=== PATIENT | male | born 1970 | race Caucasian/White ===

== ENCOUNTER 2019-01-12 06:14 | Emergency (ER) | payer BC, SELFPAY ==
[2019-01-12 06:18] VITALS: BP 133/87; PULSE 72; RESP 16; TEMP 36.7; O2SAT 99
--- NOTE | 2019-01-12 06:34 | ED.GENADUL_ITS ---
Discharge Plan Disposition Patient Disposition: HOME Discharge Details Chief Complaint: DentalOral Clinical Impression: Dental abscess Primary Care Provider: Shefali Montano ED Provider: Armin Canada Home Meds and New Rx's Prescriptions: New clindamycin HCl 150 mg capsule 450 mg PO TID 7 Days Qty: 60 RF: 0 No Action No Known Home Meds RF: 0 Discharge Instructions Instructions: Dental Abscess (ED) Additional Instructions: Please take full course of antibiotic as prescribed. Please follow-up with your dentist. Call today to confirm appointment. Return to the ER for any worsening or new concerning symptoms. Medical Decision Making 48-year-old male here with dental abscess. Patient was given Tylenol and ibuprofen. Bupivacaine topical anesthetic gel was applied to his right upper gumline. Periapical dental block of the affected tooth was performed using lidocaine. Fluctuant abscess was incised by making small superficial incision. Patient has severe penicillin allergy. Plan to start clindamycin. Patient was instructed to follow-up with his dentist. Usual and customary discharge instructions were provided. HPI General Mode of arrival: ambulatory . Date/Time Provider Initiated Documentation: 01/12/19 06:20 . Limitations to Documentation: no limitations . Information obtained by: patient . HPI Narrative: 48-year-old male presents with chief complaint of dental pain. Patient notes pain in his right upper incisor for the past week. Pain is been worsening. No trauma. Patient now notes associated swelling along his gumline. No discharge. Patient also notes associated swelling of his face today. No associated fever. Related Data Home Medications Medication Instructions Recorded Confirmed Unknown [No Known Home Meds] 01/12/19 01/12/19 clindamycin HCl 450 mg PO TID 7 Days #60 cap 01/12/19 Previous Rx's Medication Instructions Recorded clindamycin HCl 450 mg PO TID 7 Days #60 cap 01/12/19 Allergies Allergy/AdvReac Type Severity Reaction Status Date / Time Penicillins Allergy Severe Hives Unverified 01/12/19 06:22 General Stated Complaint: DentalOral HARJIT: 4 Review of Systems Constitutional Constitutional: Denies fever(s) ENT Ears, Nose, Mouth, and Throat: Reports as per HPI [facility] Surgical History Vasectomy Family History Mother No problems noted. Father No problems noted. Sister History of Chiari malformation Sister No problems noted. Brother No problems noted. Son Cystic fibrosis Social History Smoking/Tobacco Use Status: Never Alcohol Intake: never Drug use: Never Substance use type: does not use Do you feel safe at home: Yes Do you feel safe in your relationship?: Yes Exam Const General: cooperative and no acute distress HENMT Head: normocephalic Mouth: moist mucous membranes Teeth and gingiva: other (Tooth #5 with periapical abscess) Throat: posterior oropharynx normal Eyes Conjunctivae: normal conjunctivae Sclera: normal sclerae EOM: EOM intact bilaterally Neck Neck: trachea midline and supple Resp Auscultation: clear to auscultation bilaterally, no rales, no rhonchi and no wheezes Cardio Jugular venous pressure: no JVD Rate: regular rate and not tachycardic Rhythm: regular rhythm Skin General skin exam: no rashes or lesions noted Neuro General: alert, awake and tone normal Course Vital Signs Vital signs: Vital Signs Temperature 36.7 C 01/12/19 06:18 Pulse 72 01/12/19 06:18 Respiratory Rate 16 01/12/19 06:18 Blood Pressure 133/87 01/12/19 06:18 Pulse Oximetry 99 01/12/19 06:18 Temperature 36.7 C 01/12/19 06:18 Temperature Source Skin 01/12/19 06:18 Pulse 72 01/12/19 06:18 Respiratory Rate 16 01/12/19 06:18 Respiratory Effort 01/12/19 06:22 Blood Pressure 133/87 01/12/19 06:18 Blood Pressure Position Sitting 01/12/19 06:18 Pulse Oximetry 99 01/12/19 06:18 Oxygen Delivery Method Room Air 01/12/19 06:18 Oxygen Flow Rate 0 01/12/19 06:18 Pain Level 10 01/12/19 06:18 Procedures Abscess I/D Site: Other (dental) Side (if applicable): Right Sedation/analgesia: None Local Anesthetic: Lidocaine 1% Amount of anesthesia used (mL): 2 Technique: Incised with #11 Blade Amount of fluid expressed (mL): 1 Packing used?: None Complications: Other (none)
[2019-01-12] MEDS: Ibuprofen 600 MG TAB PO (06:38)
[2019-01-12] MEDS: Clindamycin 150 MG CAP 450 MG PO (06:38)
[2019-01-12] MEDS: Acetaminophen 325 MG TAB 650 MG PO (06:39)
[2019-01-12 07:07] VITALS: BP 133/87; PULSE 72; RESP 16; O2SAT 99
== END 2019-01-12 07:07 | disposition home or self-care (01) ==
PROVIDERS: Emergency Provider Student in an Organized Health Care Education/Training Program; PCP Nurse Practitioner Family
DX: K04.7 Periapical abscess without sinus (principal)
CPT/HCPCS: 99283

== ENCOUNTER 2020-03-26 09:12 | Outpatient (CLI) | payer BC, SELFPAY ==
[2020-03-28 17:06] LABS: COVID-19 RT-PCR Result NEGATIVE (Negative)
== END 2020-03-26 09:32 ==
PROVIDERS: PCP Nurse Practitioner Family; Visit Provider Nurse Practitioner Family
DX: Z20.828 Contact with and (suspected) exposure to other viral communicable diseases (principal); Z11.59 Encounter for screening for other viral diseases
CPT/HCPCS: U0003

== ENCOUNTER 2020-04-16 10:25 | Outpatient (CLI) | payer BC, SELFPAY ==
[2020-04-17 19:36] LABS: COVID-19 RT-PCR UVMMC Result Negative (Negative)
== END 2020-04-16 10:45 ==
PROVIDERS: PCP Nurse Practitioner Family; Visit Provider Nurse Practitioner Family
DX: R43.2 Parageusia (principal); R51.9 Headache, unspecified; R19.7 Diarrhea, unspecified; R11.0 Nausea
CPT/HCPCS: U0003

== ENCOUNTER 2020-07-26 09:48 | Outpatient (CLI) | payer BC, SELFPAY ==
[2020-07-27 13:29] LABS: COVID-19 RT-PCR UVMMC Result Negative (Negative)
== END 2020-07-26 09:49 | disposition home or self-care (01) ==
PROVIDERS: PCP Nurse Practitioner Family; Visit Provider Nurse Practitioner Family
DX: Z20.822 Contact with and (suspected) exposure to COVID-19 (principal)
CPT/HCPCS: U0003

== ENCOUNTER → 2021-10-18 00:53 | Outpatient (CLI) | payer BC, SELFPAY ==
--- OUTSIDE RECORDS SUMMARY | 2021-10-18 01:02 | XMS_ITS | Encounter Summary ---
:1970 Demographics Home Phone Preferred Language Unknown Marital Status Unknown Latter Day Affiliation Unknown Race Unknown Ethnic Group Unknown Author Organization [facility] Address [address] [place] [address] Care Team Providers Name Role Phone Unavailable Primary Care Provider Unavailable Encounter Details Date Type Department Care Team Description 07/26/2020 Lab Requisition [facility] Outr Resulting Lab, Pathology & Laboratory Provider [facility] [address] [place] [address] Social History Tobacco Use Types Packs/Day Years Used Date Never Assessed Sex Assigned at Date Recorded Not on file documented as of this encounter Plan of Treatment Not on filedocumented as of this encounter Procedures Procedure Name Priority Date/Time Associated Diagnosis Comme nts COVID[facility]19 [facility] Today 07/26/2020 10:09 LAB PCR EDT COVID-19 TESTING Routine 07/26/2020 10:09 Results for this EDT procedure are i n the results section. documented in this encounter Results COVID-19 TEST [facility] PCR (07/26/2020 10:09 EDT) Specimen Swab - Entire nasopharynx (body structur e) Performing Organization Address City/State/ZIP Code Phon e Number [facility] [address] [place] [address] SERVICES COVID-19 TESTING (07/26/2020 10:09 EDT) COVID-19 rt-PCR Negative Negative [facility] Result Comment: CENTER [facility]ORATORY This test has not been FDA c leared or approved. This test has been authorized by FDA under an EUA for use by authorized laboratories. This test has been authorized only for detection of nucleic acid fro SERVICES m 2019-nCoV, not for any oth er viruses or pathogens. This test is only authorized for the duration of the declaration that circumstances exist justifying the authorization of emergency use of in vitro d iagnostic tests for detectio n and/or diagnosis of 2019-nCoV under section 564(b)(1) of Act, 21 U.S.C ?? 360bbb-3(b) (1), unless the authorization is terminated or revoked sooner. Negative results do not prec lude 2019-nCoV infection and should not be used as the sole basis for treatment or other patient management decisions. Negative results must be combined with clinical observa tions, patient history, and epidemiological informatio n. Testing was performed using the kristen SARS-CoV-2 assay ([employer] on the Kristen 6800 System Performing Lab [address] [facility] Lab [facility] SERVICES Specimen Swab Performing Organization Address City/State/ZIP Code Phon e Number [facility] [address] [place] [address] SERVICES documented in this encounter Visit Diagnoses Not on filedocumented in this encounter
--- OUTSIDE RECORDS SUMMARY | 2021-10-18 01:02 | XMS_ITS | Encounter Summary ---
:1970 Demographics Home Phone Preferred Language Unknown Marital Status Unknown Sabianism Affiliation Unknown Race Unknown Ethnic Group Unknown Author Organization [facility] Address [address] [place] [address] Care Team Providers Name Role Phone Unavailable Primary Care Provider Unavailable Encounter Details Date Type Department Care Team Description 03/26/2020 Lab Requisition [facility] Outr Resulting Lab, Pathology & Laboratory Provider [facility] [address] [place] [address] Social History Tobacco Use Types Packs/Day Years Used Date Never Assessed Sex Assigned at Date Recorded Not on file documented as of this encounter Plan of Treatment Not on filedocumented as of this encounter Procedures Procedure Name Priority Date/Time Associated Comments Diagnosis DO NOT ORDER Today 03/26/2020 12:58 Results for this STANDALONE - BROAD EST procedure are in COVID TEST the results section. COVID-19 TESTING Routine 03/26/2020 12:58 Results for this EST procedure are i n the results section. documented in this encounter Results DO NOT ORDER STANDALONE - BROAD COVID TEST (03/26/2020 12:58 EST) COVID-19 rt-PCR NEGATIVE Negative [facility] Result Comment: LABORATORY 2019-novel Coronavirus (2019 -nCoV) not detected by the qRT-PCR assay. Consider testing for other respiratory viruses or re-collecting for 2019-nCoV testing. Note: Optimum timing for peak viral levels du ring infections caused by 20 -nCoV have not been determined. Collection of multiple specimens from the same patient may be necessary to detect the virus. Limitations Positive results are indicat martha of active infection with SARS-CoV-2 but do not rule out bacterial infection or co-infection with other viruses. The agent detected may not be the definite cause of diseas e. In addition, detection of viral RNA may not indicate the presence of infectious virus or that SARS-CoV-2 is the causative agent for clinical symptoms. Negative results do not prec lude SARS-CoV-2 infection and should not be used as the sole basis for patient management decisions. Negative results must be combined with clinical observations, patient his tory, and epidemiological in formation. False negative results may also occur if amplification inhibitors are present in the specimen or if inadequate numbers of organisms are present in the specimen. Op timum specimen types and romel ing for peak viral levels during infections caused by SARS-CoV-2 have not been fully determined. Collection of multiple specimens (types and time points) from the same patient may be necessary to detect the virus. The test was validated for u with upper respiratory specimens obtained via nasopharyngeal or oropharyngeal swabs in VTM, UTM, M4, M5, M6, saline, and MTM media. The performance of this test has not be en established for other spe cimens. Specimens collected using other FDA recommended Specimen Collection Materials listed in the FDA COVID-19 [employer] communication (July 07, 2019) are pr ocessed with the caveat that they were not all validated for use with this test and the result must be interpreted in this context. Furthermore, a false negative results may occur if a specimen is improperly collected, transported or handled. If the virus mutates in the RT-PCR target region, SARS-CoV-2 may not be detected or may be detected less predictably. Inhibitors or other types of interference may produce a false negative result. An interference study evaluating the effect of common cold medications was not performed. This test is not FDA-cleared but its performance characteristics were established by our CLIA-certified, CAP-accredited, high complexity laboratory in accordance with CLIA regulations, [employer] (CAP) guidel mayur (Jun 30, 2019), and FDA guidance (Jun 11, 2019). This test is only for use un odn the Food and Drug Administration's Emergency Use Authorization. Specimen Swab - Entire nasopharynx (body structur e) Performing Organization Address City/State/ZIP Code Phon e Number [facility] [place] [place] COVID-19 TESTING (03/26/2020 12:58 EST) COVID-19 rt-PCR NEGATIVE Negative [facility] Result Comment: LABORATORY 2019-novel Coronavirus (2019 -nCoV) not detected by the qRT-PCR assay. Consider testing for other respiratory viruses or re-collecting for 2019-nCoV testing. Note: Optimum timing for peak viral levels du ring infections caused by 20 -nCoV have not been determined. Collection of multiple specimens from the same patient may be necessary to detect the virus. Limitations Positive results are indicat martha of active infection with SARS-CoV-2 but do not rule out bacterial infection or co-infection with other viruses. The agent detected may not be the definite cause of diseas e. In addition, detection of viral RNA may not indicate the presence of infectious virus or that SARS-CoV-2 is the causative agent for clinical symptoms. Negative results do not prec lude SARS-CoV-2 infection and should not be used as the sole basis for patient management decisions. Negative results must be combined with clinical observations, patient his tory, and epidemiological in formation. False negative results may also occur if amplification inhibitors are present in the specimen or if inadequate numbers of organisms are present in the specimen. Op timum specimen types and romel ing for peak viral levels during infections caused by SARS-CoV-2 have not been fully determined. Collection of multiple specimens (types and time points) from the same patient may be necessary to detect the virus. The test was validated for u with upper respiratory specimens obtained via nasopharyngeal or oropharyngeal swabs in VTM, UTM, M4, M5, M6, saline, and MTM media. The performance of this test has not be en established for other spe cimens. Specimens collected using other FDA recommended Specimen Collection Materials listed in the FDA COVID-19 [employer] communication (July 07, 2019) are pr ocessed with the caveat that they were not all validated for use with this test and the result must be interpreted in this context. Furthermore, a false negative results may occur if a specimen is improperly collected, transported or handled. If the virus mutates in the RT-PCR target region, SARS-CoV-2 may not be detected or may be detected less predictably. Inhibitors or other types of interference may produce a false negative result. An interference study evaluating the effect of common cold medications was not performed. This test is not FDA-cleared but its performance characteristics were established by our CLIA-certified, CAP-accredited, high complexity laboratory in accordance with CLIA regulations, [employer] of [employer] (CAP) guidel mayur (Jun 30, 2019), and FDA guidance (Jun 11, 2019). This test is only for use un don the Food and Drug Administration's Emergency Use Authorization. Performing Lab [facility] SERVICES Specimen Swab Performing Organization Address City/State/ZIP Code Phon e Number [facility] [address] [place] [address] [facility] [place], [place] documented in this encounter Visit Diagnoses Not on filedocumented in this encounter
--- OUTSIDE RECORDS SUMMARY | 2021-10-18 01:02 | XMS_ITS | Clinical Summary ---
:1970 Demographics Home Phone Preferred Language Unknown Marital Status Unknown Adventism Affiliation Unknown Race Unknown Ethnic Group Unknown Author Organization [facility] Address [address] [place] [id number] Care Team Providers Name Role Phone Unavailable Primary Care Provider Unavailable Social History Tobacco Use Types Packs/Day Years Used Date Never Assessed Sex Assigned at Date Recorded Not on file Plan of Treatment Not on file
--- NOTE | 2021-10-18 07:15 | DI.MRI_ITS ---
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 TECHNIQUE: Multiplanar multisequence MRI of the brain and internal auditory canals was performed. CONTRAST MATERIAL: IV Contrast: 19 mL of Magnevist contrast administered. COMPARISON: No exams were available for comparison FINDINGS: VENTRICLES AND EXTRA AXIAL SPACES: Normal in size and morphology for the patient's age. HEMORRHAGE: None. CEREBRAL PARENCHYMA: No focus of restricted diffusion to suggest acute infarct. No space-occupying le ismael identified. Small focal areas of high signal in the right frontal lobe consistent with prior va scular insult. Remaining brain has a normal appearance. MIDLINE SHIFT: None. BRAINSTEM/CEREBELLUM: Normal. Sinuses: Mild mucosal thickening ethmoids, frontal and maxillary sinuses. Mastoid air cells: Clear. ENHANCEMENT: No suspicious enhancement identified. IAC/CP ANGLE: The internal auditory canals are within normal limits. The cerebellar pontine angles ar e unremarkable. No enhancing lesions are seen. Visualized portion of the facial nerves appear within normal limits. OTHER FINDINGS: None. IMPRESSION: Unremarkable MRI of the internal auditory canals. Mild sinus disease. Small high signal foci in the right frontal lobe, nonspecific could be secondary to previous lacunar infarct. DATA REPOSITORY:
[2021-10-18] MEDS: Normal Saline Flush 10 ML SYR IVP (09:41)
[2021-10-18] MEDS: Gadoterate meglumine 20 ML SYRINGE 19 ML IVP (09:48)
== END ==
PROVIDERS: PCP Nurse Practitioner Family; Visit Provider Nurse Practitioner
DX: H93.A1 Pulsatile tinnitus, right ear (principal); J32.9 Chronic sinusitis, unspecified
CPT/HCPCS: 70553

== ENCOUNTER 2024-06-13 17:48 | Outpatient (CLI) | payer BC, SELFPAY ==
--- NOTE | 2024-06-13 15:05 | DI.RAD_ITS ---
Exam(s) XR CERVICAL SPINE COMP 4-5V EXAM: XR CERVICAL SPINE COMP 4-5V CLINICAL HISTORY: R/O fracture M54.12 Radiculopathy cervical region. TECHNIQUE: 2D digital imaging was performed. Five views were performed. COMPARISON: No exams were available for comparison FINDINGS: BONES: No fracture or destructive lesion. Vertebral bodies are unremarkable. Facet degenerative justyna nges are present, greatest at C2-3 and C7-T1. No neural foraminal narrowing. DISKS: On mild narrowing of the C5-6 disc space with endplate osteophytes. The remaining interverteb ral disc spaces are maintained. ALIGNMENT: Cervical spinal alignment is within normal limits. The odontoid and atlantoaxial articulat ions are normal. SOFT TISSUE: Normal. The lung apices are clear. IMPRESSION: Degenerative changes as above. DATA REPOSITORY: RADIATION DOSE DELIVERED:
== END 2024-06-13 18:08 ==
LOC: DI 17:54
PROVIDERS: PCP Nurse Practitioner Family; Visit Provider Family Medicine
DX: M54.12 Radiculopathy, cervical region (principal)
CPT/HCPCS: 72050

== ENCOUNTER 2024-10-07 00:23 | Outpatient (CLI) | payer BC, MEDICAID, SELFPAY ==
--- NOTE | 2024-10-07 07:00 | DI.MRI_ITS ---
Exam(s) MR CERVICAL SPINE WO EXAM: MR CERVICAL SPINE WO CLINICAL HISTORY: 6+ weeks of neck pain, needed for pain clinic, CERVICALGIA, M54.2 TECHNIQUE: Multiplanar multisequence MRI of the cervical spine was performed without intravenous contrast. COMPARISON: CR XR CERVICAL SPINE COMP 4-5V from 06/13/2024 FINDINGS: BONES: Vertebral body heights are maintained. Intervertebral disc spaces are normal. Alignment is normal. Degenerative endplate signal changes are present at C5-C6. There osteophytes seen at this level. Less prominent changes are also seen at C4-C5. CERVICAL CORD: Craniovertebral junction is unremarkable. The cervical cord is normal size and signal intensity. SOFT TISSUES: Unremarkable. C2-3: No disc herniation or bulge is identified. No significant central spinal canal or neural foraminal stenosis. C3-4: No disc herniation or bulge is identified. No significant central spinal canal or neural foraminal stenosis C4-5: No disc herniation or bulge is identified. No significant central spinal canal or neural foraminal stenosis C5-6: No disc herniation or bulge is identified. There are moderate degenerative changes seen at the left uncovertebral joints causing mild narrowing of the left neural foramen. No significant central spinal canal or right neural foraminal stenosis is present. C6-7: No disc herniation or bulge is identified. No significant central spinal canal or neural foraminal stenosis C7-T1: No disc herniation or bulge is identified. No significant central spinal canal or neural foraminal stenosis IMPRESSION: Degenerative changes seen at C5-C6 causing moderate left neural foraminal stenosis. DATA REPOSITORY:
== END 2024-10-07 00:43 ==
PROVIDERS: PCP Family Medicine; Visit Provider Family Medicine
DX: M50.022 Cervical disc disorder at C5-C6 level with myelopathy (principal)
CPT/HCPCS: 72141

== ENCOUNTER 2025-03-30 15:10 | Emergency (ER) | payer MEDICAID, SELFPAY ==
[2025-03-30 15:11] VITALS: BP 137/86; PULSE 72; RESP 16; TEMP 36.9; O2SAT 98
--- NOTE | 2025-03-30 15:15 | DI.RAD_ITS ---
Exam(s) XR HIP RT COMPLETE AP PELVIS EXAM: XR HIP RT COMPLETE AP PELVIS CLINICAL HISTORY: trauma. TECHNIQUE: 2D digital imaging was performed. Three views COMPARISON: No exams were available for comparison FINDINGS: BONES: No acute fracture is present. No bony destructive lesion is seen. JOINTS: No dislocation present. Slight narrowing of the left superior hip joint space. Mild bilateral acetabular spurring. Mild spurring at the margins of the left femoral head. The SI joints and pubic symphysis are unremarkable. SOFT TISSUE: Normal. IMPRESSION: Mild degenerative changes. No acute abnormality. DATA REPOSITORY: RADIATION DOSE DELIVERED:
--- NOTE | 2025-03-30 15:15 | DI.RAD_ITS ---
Exam(s) XR KNEE RT 3V AP,LAT,KARIN EXAM: XR KNEE RT 3V AP,LAT,KARIN CLINICAL HISTORY: trauma. TECHNIQUE: 2D digital imaging was performed. Three views. COMPARISON: No exams were available for comparison FINDINGS: BONES: There is a nondisplaced fracture at the tip of the proximal fibular head. No bony destructive lesion is seen. JOINTS: The knee is normally aligned. No joint effusion is seen. Slight joint space narrowing of the medial femoral tibial joint with mild periarticular spurring. SOFT TISSUE: Normal. IMPRESSION: Nondisplaced fracture at the fibular head. DATA REPOSITORY: RADIATION DOSE DELIVERED:
--- NOTE | 2025-03-30 15:22 | ED.GENADUL_ITS ---
Discharge Plan Disposition Patient Disposition: Home Condition: Good Discharge Details Clinical Impression: Internal derangement of knee, acute, Acute myofascial strain of lumbar region Primary Care Provider: Rohan Faria ED Provider: Colten Arias Home Meds and New Rx's Prescriptions: New ibuprofen 600 mg tablet 600 mg PO TID PRNQty: 30 0RF methocarbamol 500 mg tablet 500 - 1,000 mg PO TID PRN (Reason: spasms) Qty: 15 0RF Discharge Instructions Instructions: Internal Derangement of the Knee, Back Muscle Strain Additional Instructions: Please keep your knee immobilized and use crutches for the next few days. Keep it elevated and apply ice on and off to help with pain and swelling. You may alternate ibuprofen with acetaminophen every 4 hours for pain. You likely have muscle strain of your low back for which ice, ibuprofen and the methocarbamol should help. You will need follow-up with orthopedics in regards to your knee. You may call the office tomorrow although it is likely they will be calling you as I did discuss with Dr. Webster your injury. Return to ED for any severe worsening pain, numbness or weakness in the leg, other concerns. Stand Alone Forms: Portal Information Referrals: Mian Webster MD [ [facility] STAFF PHYSICIAN, Orthopaedic Surgical] HPI General Mode of arrival: wheelchair . Date/Time Provider Initiated Documentation: 03/30/25 15:22 . Limitations to Documentation: no limitations . Information obtained by: patient and RN notes reviewed . HPI Narrative: Patient presents to ED after injury while cutting a tree down. Reports tree was probably 10 inches in diameter. Not sure whether it definitely struck him or not but he did twist to avoid taking the brunt of the tree. He does think it probably landed in the knee area. He is able to ambulate with difficulty. Mostly has pain in the right knee and right lower lumbar area. Denies any loss of consciousness. Denies neck pain or chest pain. Denies any difficulty breathing. Denies any abdominal pain. Related Data Home Medications ?Medication ?Instructions ?Recorded ?Confirmed ibuprofen 600 mg tablet 600 mg PO TID PRN #30 tabs 1 05/31/24 methocarbamol 500 mg tablet 500 - 1,000 mg (1 - 2 x 50 0 mg) PO 03/30/25 TID PRN spasms #15 tabs Previous Rx's ?Medication ?Instructions ?Recorded ibuprofen 600 mg tablet 600 mg PO TID PRN #30 tabs 1 05/31/24 methocarbamol 500 mg tablet 500 - 1,000 mg (1 - 2 x 50 0 mg) PO 03/30/25 TID PRN spasms #15 tabs Allergies Allergy/AdvReac Type Severity Reaction Status Date / Time Penicillins Allergy Severe Hives Unverified 03/30/25 15:14 General Stated Complaint: Orthopedic HARJIT: 3 Exam Narrative Exam Narrative: Const: WDWN male in NAD. VS per triage. HEENT: NC/AT. Normal facial exam. Neck: Supple. Trachea midline. No cervical spine tenderness. Lungs: Normal respiratory effort. Lungs are clear. No chest wall tenderness. Cor: RRR. Good distal pulses. Back: No TLS spine tenderness. No bruising/abrasions. Some tenderness right lateral mid lumbar area. Neuro: A+O x 3. Normal speech, mentation, gait. Cranial nerves II - XII grossly intact. No gross motor or sensory deficit. Ext: No C/C/E. Tender right medial knee. NVI distal. BUE and LLE normal. Course Vital Signs Vital signs: Vital Signs Temperature 98.4 F 03/30/25 15:11 Pulse 72 03/30/25 15:11 Respiratory Rate 16 03/30/25 15:11 Blood Pressure 137/86 03/30/25 15:11 Pulse Oximetry 98 03/30/25 15:11 Temperature 98.4 F 03/30/25 15:11 Pulse 72 03/30/25 15:11 Respiratory Rate 16 03/30/25 15:11 Blood Pressure 137/86 03/30/25 15:11 Blood Pressure Position Sitting 03/30/25 15:11 Pulse Oximetry 98 03/30/25 15:11 Oxygen Delivery Method Room Air 03/30/25 15:11 Oxygen Flow Rate 0 03/30/25 15:11 Pain Level 10 03/30/25 15:11 Comment 2 xtra strength Tylenol captain room service 03/30/25 15:11 Medical Decision Making Patient presenting with injury to the right back and lower extremity after avoiding a tree that was falling on him. Does think knee probably did get caught under the tree and he is quite tender in the medial aspect of the knee. He did not have head injury and has no evidence of spinal injury or tenderness. He has no chest pain or difficulty breathing with clear lungs. He is neurovascularly intact throughout. Will obtain a right hip and right knee film after given IM Toradol for pain. 16:15 - Hip and pelvis x-ray per my read without acute fracture/dislocation. Knee x-ray shows a fibula head fracture. Given the amount of pain, especially medially in the knee, I'm concerned for significant internal derangement. Discussed with Dr. Peterson and reviewed images with him. There is suggestion of injury to the lateral intercondylar eminence and the medial tibial plateau. Will need close follow up with ortho and likely MRI. Will place in immobilizer and give crutches. Ice, elevate and alternate ibuprofen with acetaminophen for pain as needed. Return precautions provided. Imaging Data Radiologic Study: Attestation: I personally reviewed and interpreted this imaging study as follows: Imaging: X-Ray My impression: see [facility] All Active Problems (Updated 03/30/25 @ 16:34 by Colten Arias MD) Acute myofascial strain of lumbar region (Acute) Internal derangement of knee, acute (Acute) Foraminal stenosis of cervical region (Acute) MRI 09/2024-C5-6 mod L neural foraminal stenosis. Decr disk height throughout cervical spine. Carpal tunnel syndrome on left (Acute) Impingement syndrome of left shoulder (Acute) Tendinopathy of left rotator cuff (Acute) Cervicalgia (Acute) Nonpulsatile tinnitus (Acute) Sensorineural hearing loss (SNHL) of both ears (Acute) Mixed conductive and sensorineural hearing loss, unilateral, right ear with restricted hearing on the contralateral side (Acute) Pulsatile tinnitus, right ear (Acute) Surgical History Vasectomy Family History Mother No problems noted. Father No problems noted. Sister History of Chiari malformation Sister No problems noted. Brother No problems noted. Son Cystic fibrosis Social History Smoking/Tobacco Use Status: Never Smoking risk assessment performed?: Yes Alcohol Intake: never Drug use: Never Substance use type: does not use Housing: house Do you feel safe at home: Yes Do you feel safe in your relationship?: Yes
[2025-03-30] MEDS: Ketorolac 30 MG/ML VIAL IM (15:39)
== END 2025-03-30 17:01 | disposition home or self-care (01) ==
PROVIDERS: Emergency Provider Emergency Medicine; PCP Family Medicine
DX: S39.012A Strain of muscle, fascia and tendon of lower back, initial encounter (principal); M23.91 Unspecified internal derangement of right knee; S84.11XA Injury of peroneal nerve at lower leg level, right leg, initial encounter; W22.8XXA Striking against or struck by other objects, initial encounter; Y93.L9 Activity, other outdoor activity
CPT/HCPCS: 99284 ×2; 96372; 73562; 73502; J1885

== ENCOUNTER 2025-03-31 14:32 | Emergency (ER) | payer MEDICAID, SELFPAY ==
[2025-03-31 14:53] VITALS: BP 122/76; PULSE 90; RESP 18; TEMP 36.9; O2SAT 99
--- NOTE | 2025-03-31 15:07 | ED.GENADUL_ITS ---
Discharge Plan Disposition Patient Disposition: Home Condition: Good Discharge Details Clinical Impression: Internal derangement of knee, acute, Right peroneal nerve injury Primary Care Provider: Rohan Faria ED Provider: Colten Arias Meds and New Rx's Prescriptions: New ibuprofen 600 mg tablet 600 mg PO TID Qty: 30 0RF methocarbamol 500 mg tablet 500 - 1,000 mg PO TID PRNQty: 15 0RF acetaminophen 500 mg capsule 1,000 mg PO TID PRNQty: 30 0RF Held celecoxib 100 mg capsule 100 mg PO BID Hold Instructions: while using ibuprofen Patient Comments: TAKE 1 CAPSULE BY MOUTH TWICE DAILY WITH FOOD Rx Instructions: with food Discharge Instructions Additional Instructions: You were seen for burning/tingling involving the distal shea and top of foot. Your exam suggest an injury to the peroneal nerve likely related to swelling from the fracture of the fibula head. Your CT scan shows no injury to the arteries of the leg. Continue wearing the knee immobilizer and remain NWB. Continue ice, ibuprofen to help with the swelling. Use acetaminophen for pain if needed and alternate with the ibuprofen every 4 hours. The methocarbamol is for back spasms if needed. Follow up with ortho as scheduled. Return to ED for severe worsening pain, worsening numbness/weakness, other concerns. Stand Alone Forms: Portal Information Discharge Data Discharge Date/Time-TO BE ENTERED AT DEPARTURE: 03/31/25 18:02 HPI General Mode of arrival: wheelchair . Date/Time Provider Initiated Documentation: 03/31/25 14:37 . Limitations to Documentation: no limitations . Information obtained by: patient and RN notes reviewed . HPI Narrative: Patient presents to ED with burning and tingling in the right distal anterior shea and top of his foot. Patient was seen by me yesterday after twisting and falling to avoid a tree that he had cut down falling on him. X-rays suggest pretty significant ligamentous injury and included a fibular head fracture. He was not having any distal symptoms. He began to have the burning and tingling today and also noted that his foot was extremely cold to touch. Primary care had called to see how he was doing and referred him back to the ED given the change. Related Data Home Medications ?Medication ?Instructions ?Recorded ?Confirmed acetaminophen 500 mg capsule 1,000 mg (2 x 500 mg) PO TID PRN 03/31/25 #30 caps celecoxib 100 mg capsule 100 mg PO BID 03/31/2503/31 Held on 03/31/25. Instructions: while using ibuprofen ibuprofen 600 mg tablet 600 mg PO TID #30 tabs 03/31 methocarbamol 500 mg tablet 500 - 1,000 mg (1 - 2 x 50 0 mg) PO 03/31/25 TID PRN #15 tabs Previous Rx's ?Medication ?Instructions ?Recorded acetaminophen 500 mg capsule 1,000 mg (2 x 500 mg) PO TID PRN 03/31/25 #30 caps ibuprofen 600 mg tablet 600 mg PO TID #30 tabs 03/31 methocarbamol 500 mg tablet 500 - 1,000 mg (1 - 2 x 50 0 mg) PO 03/31/25 TID PRN #15 tabs Allergies Allergy/AdvReac Type Severity Reaction Status Date / Time Penicillins Allergy Hives Verified 03/31/25 17:36 General Stated Complaint: Orthopedic HARJIT: 3 Exam Narrative Exam Narrative: Const: WDWN male in NAD. VS per triage. HEENT: NC/AT. Normal facial exam. Neck: Supple. Trachea midline. Lungs: Normal respiratory effort. Ext: RLE with cold foot but normal DP/PT pulse. Reports decrease sensation and burning distal anterior shea and dorsum of foot. No sensory change plantar aspect of foot. Able to flex and extend toes and plantar flex foot but has weak dorsiflexion. roll slicing machine tender lateral and medial knee. Knee ROM not tested. Course Vital Signs Vital signs: Vital Signs Temperature 98.4 F 03/31/25 14:53 Pulse 90 03/31/25 14:53 Respiratory Rate 18 03/31/25 14:53 Blood Pressure 122/76 03/31/25 14:53 Pulse Oximetry 99 03/31/25 14:53 Temperature 98.4 F 03/31/25 14:53 Temperature Source Oral 03/31/25 14:53 Pulse 90 03/31/25 14:53 Respiratory Rate 18 03/31/25 14:53 Blood Pressure 122/76 03/31/25 14:53 Blood Pressure Position Sitting 03/31/25 14:53 Pulse Oximetry 99 03/31/25 14:53 Oxygen Delivery Method Room Air 03/31/25 14:53 Oxygen Flow Rate 0 03/31/25 14:53 Pain Level 9 03/31/25 14:53 Medical Decision Making Patient presenting to ED with a cold right foot, burning and tingling distal anterior shea and dorsum of foot, weak dorsiflexion of right foot. These findings were not present yesterday after his initial injury. Symptoms began today and patient referred in to ED by PCP medicare insurance specialist. Patient does likely have significant internal derangement of the right knee and does have a known proximal fibular head fracture. Neurologic findings suggest peroneal nerve injury or at least neuropraxia likely from the fibular head fracture. The cold foot is a little more concerning despite having normal pulses. While it seems unlikely that patient dislocated and relocated his knee unknowingly a CTA does need to be performed to rule out popliteal artery injury. IV established and laboratory studies sent, CTA ordered. I did discuss with Dr. Webster patient's return to ED. Patient does have follow- up with him April 11. Agrees with obtaining CTA though with good pulses not likely to be arterial injury. Does feel that findings are consistent with peroneal nerve injury. Patient's labs are unremarkable. CBC, coags, BMP with no significant abnormalities. CTA of the lower extremity with no arterial injury from the iliac through to the PT/DP arteries. Nondisplaced fibular head fracture noted as well as soft tissue swelling and edema but no hematoma. Patient to continue ice and ibuprofen. He is to remain in the knee immobilizer and nonweightbearing. Follow-up with orthopedics as scheduled. Return precautions provided. Lab Data Lab results reviewed: Yes I reviewed the patient's lab results. Lab results narrative: see [facility] All Active Problems (Updated 03/31/25 @ 17:31 by Colten Arias MD) Right peroneal nerve injury (Acute) Acute myofascial strain of lumbar region (Acute) Internal derangement of knee, acute (Acute) Foraminal stenosis of cervical region (Acute) MRI 09/2024-C5-6 mod L neural foraminal stenosis. Decr disk height throughout cervical spine. Carpal tunnel syndrome on left (Acute) Impingement syndrome of left shoulder (Acute) Tendinopathy of left rotator cuff (Acute) Cervicalgia (Acute) Nonpulsatile tinnitus (Acute) Sensorineural hearing loss (SNHL) of both ears (Acute) Mixed conductive and sensorineural hearing loss, unilateral, right ear with restricted hearing on the contralateral side (Acute) Pulsatile tinnitus, right ear (Acute) Surgical History Vasectomy Family History Mother No problems noted. Father No problems noted. Sister History of Chiari malformation Sister No problems noted. Brother No problems noted. Son Cystic fibrosis Social History Smoking/Tobacco Use Status: Never Smoking risk assessment performed?: Yes Alcohol Intake: never Drug use: Never Substance use type: does not use Housing: house Do you feel safe at home: Yes Do you feel safe in your relationship?: Yes
--- NOTE | 2025-03-31 15:15 | DI.CT_ITS ---
Exam(s) CT LOWER EXTREMITY RT CTA EXAM: CT LOWER EXTREMITY RT CTA CLINICAL HISTORY: knee injury yest now foot cold and numb. TECHNIQUE: Imaging Protocol: Axial CT angiography was performed with multi- slice acquisition and multi-planar and/or 3D reconstructions. CONTRAST MATERIAL: Intravenous: Omnipaque 350 Contrast volume:structured data in ml Contrast route:IV - Oral: yes / no COMPARISON: CR XR HIP RT COMPLETE AP PELVIS from 03/30/2025 CR XR KNEE RT 3V AP,LAT,KARIN from 03/30/2025 FINDINGS: Vascular Structures: No atherosclerotic changes. Pelvis: Right iliac artery: No significant stenosis. Common Femoral artery: No significant stenosis. Lower extremities: Right: Common Femoral: No significant stenosis. Superficial Femoral: No significant stenosis. Popliteal: No significant stenosis. Knee Trifurcation: No significant stenosis. Posterior Tibial: No significant stenosis. Peroneal: No significant stenosis. Dorsalis Pedis: No significant visible stenosis. Soft Tissues: There is mild edema in the subcutaneous fat at the level of the head of the fibula. No evidence of a hematoma. The muscles are unremarkable. Bladder: Symmetric distention, no gross wall thickening. Visualized bowel bowel: No obstruction or bowel wall thickening. Peritoneal cavity: No ascites, collection or mesenteric inflammatory response. Bones: No fracture at the visualized portions of the pelvis or lower lumbar spine. The femur is intact. Nondisplaced fracture at the proximal head of the fibula. Joints: Moderate-sized joint effusion. No evidence of hemorrhage. Reproductive: Unremarkable. IMPRESSION: No significant stenosis or aneurysm. No evidence of vascular occlusion. Nondisplaced fracture at the head of the proximal fibula. No additional fractures are identified. There is a moderate-sized knee joint effusion. No significant soft tissue hematoma. RADIATION DOSE DELIVERED: Total DLP DATA REPOSITORY: All CT scans at this facility are submitted to the National Radiology Data Registry (NRDR) Dose Index Registry (DIR) with the [employer] (ACR). RADIATION OPTIMIZATION: All CT scans at this facility use at least one of these dose optimization techniques: automated exposure control; mA and/or kV adjustment per patient size (includes targeted exams where dose is matched to clinical indication); or iterative reconstruction.
[2025-03-31 15:55] LABS: Abs Immature Grans 0.01 10^3/uL (0.0-0.06); HCT 39.8 % (40.0-50.0); HGB 14.0 g/dL (13.5-17.5); Immature Grans % 0.2 %; MCH 31.0 pg (27.0-33.0); MCHC 35.2 % (32.0-36.0); MCV 88 fL (80-95); MPV 9.0 fL (8.0-11.0); Platelet Count 256 10^3/uL (130-400); RBC 4.52 10^6/uL (4.36-5.78); RDW 12.5 % (11.8-14.1); RDW-SD 40.6 fL; WBC 5.89 10^3/uL (4.4-10.8)
[2025-03-31 16:00] VITALS: BP 128/70; PULSE 76; RESP 16; O2SAT 99
[2025-03-31 16:08] LABS: INR 0.9 (0.9-1.1); PTT Activated 23.9 sec (20.6-30.2); Prothrombin Time 8.9 sec (9.1-11.1)
[2025-03-31 16:25] LABS: Anion Gap 6.8 mmol/L (3-11); BUN 24 mg/dL (9-23); CO2 26.2 mmol/L (20.0-31.0); Calcium 8.7 mg/dL (8.3-10.6); Chloride 111 mmol/L (98-107); Glucose 88 mg/dL (74-106); Potassium 4.1 mmol/L (3.5-5.1); Sodium 144 mmol/L (136-145)
[2025-03-31] MEDS: Normal Saline - Diluent 50 ML VIAL IJ (16:25)
[2025-03-31] MEDS: Omnipaque 350 MG/ML 100 ML BTL IJ (16:25)
[2025-03-31] MEDS: Normal Saline Flush 10 ML SYR IVP (16:26)
== END 2025-03-31 18:02 | disposition home or self-care (01) ==
PROVIDERS: Emergency Provider Emergency Medicine; PCP Family Medicine
DX: S84.11XA Injury of peroneal nerve at lower leg level, right leg, initial encounter (principal); M23.91 Unspecified internal derangement of right knee; W22.8XXA Striking against or struck by other objects, initial encounter
CPT/HCPCS: 99284; 99285; 36415; 73706; 80048; 85025; 85610; 85730; J3490

== ENCOUNTER → 2025-04-03 11:18 | Outpatient (CLI) | payer MEDICAID, SELFPAY ==
--- NOTE | 2025-04-03 11:15 | DI.MRI_ITS ---
Exam(s) MR LOWER JOINT RT WO EXAM: MR LOWER JOINT RT WO CLINICAL HISTORY: ? MULTILIGAMENTOUS KNEE INJURY, R PERONEAL NERVE INJURY S84.11XA TECHNIQUE: Multiplanar multisequence MRI of the knee was performed. COMPARISON: CR XR KNEE RT 3V AP,LAT,KARIN from 03/30/2025 FINDINGS: EFFUSION: There is a moderate-large size knee joint effusion. There is no Valentin cyst in the medial popliteal fossa. MARROW:There is a nondisplaced transverse fracture at the base of the styloid process of the fibular head with mild surrounding bone edema. There is significant injury signal in the posterolateral corner of the knee with significant injury of lateral capsular structures (see below). Subarticular bone edema is also noted in the outer 3rd of the medial femoral condyle and there subtle suggestion of subtle subarticular fracture at this level, best seen on the coronal T1 images. There are multiple small tiny confluent subarticular cysts in the sub spinous tibial plateau. PATELLOFEMORAL COMPARTMENT: The quadriceps tendon is intact. The patellar ligament is intact. There is moderate thinning of the retropatellar cartilage over the mid facet and mild subarticular bone edema at this level in the posterior patella.There is no intraosseous signal to suggest recent patellar dislocation. CRUCIATE LIGAMENTS: There is some abnormal signal in the lower 3rd of the anterior cruciate ligament but there does not appear to be a high-grade ACL tear..There is mild increased signal in the upper PCL at its attachment to the inner aspect of the medial femoral condyle but no high-grade tear of this structure MEDIAL COMPARTMENT/MEDIAL MENISCUS: There is an oblique tear in the posterior horn of the medial meniscus. This violates the inferior articular surface. The meniscal root is intact.Some involvement of the body. Anterior horn appears intact. There are no flipped meniscal fragments and no bucket-handle configuration.. There is mild narrowing of the articular cartilage over the main weight-bearing surface of the medial compartment. No osteochondral defects. Subarticular edema is seen in the outer 3rd of the medial femoral condyle, as described above, this directly overlying the torn posterior horn of the medial meniscus. MEDIAL COLLATERAL LIGAMENT: There is partial tearing of the lower most aspect of the vastus medialis with soft tissue edema adjacent to the femoral attachment of medial collateral ligament. However, the medial collateral ligament itself appears intact LATERAL COMPARTMENT/LATERAL MENISCUS: There is no evidence of lateral meniscal tear.There is relative preservation of articular cartilage in the lateral compartment and there is no subarticular bone edema in the lateral femoral condyle nor within the subjacent lateral tibial plateau. ILIOTIBIAL BAND: Intact LATERAL CAPSULE AND COLLATERAL LIGAMENT COMPLEX: There is significant signal abnormality in the fibular collateral ligament consistent with high-grade partial tearing in the upper half of this structure. There is also some signal abnormality at the fibular styloid attachment site the lower aspect the fibular collateral ligament. There is some increased signal at the condylar attachment site of the popliteus tendon but no high-grade tear of this structure. PERONEAL NERVE: The common peroneal nerve appears intact in the proximal field of view of this study medial to the biceps femoris. There is overlying subcutaneous edema and fluid. There is some mild increased signal with in the nerve but there does not appear to be complete disruption of the nerve. IMPRESSION: 1. There is nondisplaced fracture at the base of the styloid process of the fibular head with posterolateral corner injury as described above, predominately involving the fibular collateral ligament. 2. There is no oblique tear of the posterior horn of the medial meniscus which also involves the body. There is sparing of the anterior horn. 3. There is a subarticular trabecular fracture line in the medial femoral condyle with overlying bone edema (no osteochondral defect at this time). This is immediately over the tear in the posterior horn of the medial meniscus. 4. There is edema signal in the soft tissues around the peroneal nerve adjacent to the fracture site. There does not appear to be obvious peroneal nerve disruption at this level. Other findings as above. DATA REPOSITORY:
--- NOTE | 2025-04-03 17:15 | DI.VRAD_ITS ---
Addendum created by Bryan Tate MD on 04/03/2025 5:17:33 PM EST: Small focus of T2 hyperintensity within the peroneal nerve consistent with injury. Initial report created on 04/03/2025 5:15:06 PM EST: PROCEDURE INFORMATION: Exam: MR Right Lower Extremity Joint Without Contrast, Knee Exam date and time: 04/03/2025 2:03 PM Age: 54 years old Clinical indication: Injury or trauma; Fall; Blunt trauma; Right; Injury date: 03/30; Injury details: Logging injury last . Knee pain, foot numbness. ? Multiligamentous knee injury, R peroneal nerve injury TECHNIQUE: Imaging protocol: Magnetic resonance imaging of the right lower extremity joint without contrast. Exam focused on the knee. Total images: [id number] COMPARISON: CT LOWER EXTREMITY RT CTA 03/31/2025 4:05 PM FINDINGS: Bones/joints: Enchondroma base of the tibial spines. Nondisplaced fracture at the tip of the fibular head. Small intra-articular fracture involving the medial femoral condyle. Adjacent bone marrow edema. Additional trabecular microfracturing medial femoral condyle. Knee effusion. Medial meniscus: Oblique tear posterior horn medial meniscus. Medial meniscal tear extends into the meniscal body. Lateral meniscus: Unremarkable. No tear. Anterior cruciate ligament: Unremarkable. No tear. Posterior cruciate ligament: Unremarkable. No tear. Medial capsule and supporting structures: Unremarkable. No tear. Lateral capsule and supporting structures: Partial tear of the origin of the fibular collateral ligament and biceps femoris tendons. Strain involving the popliteus tendon. Extensor mechanism of knee: Unremarkable. No tear. Soft tissues: Lateral subcutaneous edema. IMPRESSION: 1. Posterior corner injury of the knee including partial ligamentous tears and a fibular fracture. 2. Medial meniscal tear. 3. Medial femoral condylar fracture. Dictated and Authenticated by: Bryan Tate MD. Orderin Darin Pappas MD
== END ==
LOC: DI 11:19
PROVIDERS: PCP Family Medicine; Visit Provider Student in an Organized Health Care Education/Training Program
DX: S52.511A Displaced fracture of right radial styloid process, initial encounter for closed fracture (principal); X58.XXXA Exposure to other specified factors, initial encounter
CPT/HCPCS: 73721